=== PATIENT | male | born 1950 | race African-American/Black ===

== ENCOUNTER → 2019-08-09 | Day surgery (SDC) | payer OTHER ==
--- NOTE | 2019-08-07 14:42 | EKG ---
Test Date: 2019-08-07 Test Time: 14:22:37 Traffic Control Flagger: JESSICA MEASUREMENT RESULTS: Intervals: Rate: 60 VT: 202 QRSD: 90 QT: 410 QTc: 410 [place]: P: 50 VT: 202 QRS: 2 T: 26 INTERPRETIVE STATEMENTS: Normal sinus rhythm Normal ECG Compared to ECG 05/14/2013 12:08:41 No significant changes Electronically Signed On 08-07-19 14:41:51 REFRIGERATOR GLAZIER by Marek Allred
[2019-08-07 14:48] LABS: Absolute Lymphocytes (CBC) 1.2 K/uL (0.7-4.9); Basophils % 0.3 % (0-1.3); Hematocrit 39.8 % (39.6-49.0); Lymphocytes % 27.2 % (15.3-44.8); MPV 8.6 fL (7.6-11.3); RBC Red Blood Cell Count 4.45 M/uL (4.33-5.43)
[2019-08-07 15:07] LABS: ALT/SGPT 31 U/L (12-78); AST/SGOT 18 U/L (15-37); Albumin 4.2 g/dL (3.4-5.0); Alkaline Phosphatase 81 U/L (45-117); BUN Blood Urea Nitrogen 17 mg/dL (7-18); Bicarbonate 31 mmol/L (21-32); Bilirubin Total 0.8 mg/dL (0.2-1.0); Glucose Level 138 mg/dL (74-106); Potassium 4.2 mmol/L (3.5-5.1); Protein, Total 7.4 g/dL (6.4-8.2); Sodium Level 139 mmol/L (136-145)
[~2019-08-09] MED LIST: CEFAZOLIN/SWI 1gm 1 GM/10 ML SYR ONE; EPHEDRINE SULF 50 MG/ML VIAL ONE; FENTANYL CITR 100 MCG/2 ML ONE; FENTANYL CITR 250 MCG/5 ML ONE; LIDOCAINE 2% MPF 5 ML VIAL ONE; MIDAZOLAM HCL 2 MG/2 ML INJ ONE; NA CHLORIDE 0.9% 1,000 ML ONE; ONDANSETRON 4 MG/2 ML VIAL ONE; propofoL 200 MG/20 ML VIAL IV ONE
[2019-08-09] MEDS: FENTANYL CITR 100 MCG/2 ML ONE ×4 (13:25→13:55)
[2019-08-09] MEDS: MEPERIDINE HCL 25 MG/0.5 ML ONE ×2 (14:05→14:10)
--- NOTE | 2019-08-09 15:20 | OP ---
Date of Procedure: 08/09/2019 Surgeon: Cleve Horan MD Preoperative Diagnoses: Left carpal tunnel syndrome with left fifth trigger digit. Postoperative Diagnosis: Left carpal tunnel syndrome with left fifth trigger digit. Procedures: 1.Left open carpal tunnel release. 2.Left fifth trigger digit release. Estimated Blood Loss: 3 cc. Complications: There were no complications. Specimens: No pathology specimens sent. Indications For Operation: Mr. Lantigua is a 69-year-old male who I have seen in the past for trigger digit and he had an injection. Unfortunately, this was only temporarily helpful. He came back to s ee mo with significant amount of pain and stiffness in his left finger. Also, does have a history of carpal tunnel and is now complaining of numbness and tingling of his thumb, index and long finger. All risks, benefits, and alternatives to open carpal tunnel release with release of the fifth trigger digit have been discussed with the patient. He states he understands things as presented and wishes to proceed. Description Of Procedure: The patient was taken to the operating room and placed in supine position. General anesthesia was obtained by staff. Following this, a well-padded tourniquet was placed on s uperior left arm. The left upper extremity was then prepped and draped in usual sterile fashion for procedure. Following this, the arm was then elevated, but not exsanguinated. Tourniquet was raised. Attention was first turned to the fifth trigger digit. An incision was made just distal to the dist al palmar crease and was taken down carefully through skin only. Great care was taken to not progres s deeper than that and blunt dissection was then used as well as retraction to reveal the flexor tend on sheath as well as the A1 david. The A1 david was identified. A small tremayne was made in the A1 p ulley, was then divided in a proximal to distal direction until had no constricting bands. It was th en divided distal to proximal direction until had no constricting bands. Following this, the tendon was brought through full range of motion, found to be without abnormal tender motion. Attention was then turned to the carpal tunnel. A standard carpal tunnel incision was then made which parallels th e thenar crease. Meticulous hemostasis being maintained using bipolar electrocautery. This was take n down through skin only. The palmar fascia was encountered. It was divided longitudinally and any obstructions over the transverse carpal ligament were then gently swept out of the way. This was fol lowed by incision of the transverse carpal ligament. This allowed for visualization of underlying ca rpal tunnel structures. The transverse carpal ligament was then divided in a proximal to distal dire ction until no constricting bands. Attention was then turned from a distal to proximal direction whe re it was divided until there was no constricting bands. It should be noted he had a fairly dense vo lar forearm fascia and this was released as well. Following this, the tourniquet was dropped and the trigger digit incision was then closed using nylon. This was followed by inspection of the carpal t unnel. The median nerve was found to be fairly purple in color and definitely signs of compression. However, it has been completely released and there were no constricting bands as well as the median nerve being incontinuity. The skin was then closed using interrupted 4-0 nylon sutures. Patient the n placed in very well-padded sterile dressing, awakened, and taken to recovery room in good condition . /ROBER Voice ID: [id number] Report ID: [id number]
[2019-08-09 16:07] VITALS: BP 96/67; TEMP 97.2; O2SAT 94
== END ==
LOC: OR 13:30
PROVIDERS: ATTEND Orthopaedic Surgery
PROC: 0LN80ZZ Release Left Hand Tendon, Open Approach (ICD-10-PCS; principal; 2019-08-09 12:30)
PROC: 01N50ZZ Release Median Nerve, Open Approach (ICD-10-PCS; 2019-08-09 12:30)
DX: G56.02 Carpal tunnel syndrome, left upper limb (principal); M65.352 Trigger finger, left little finger
CPT/HCPCS: 93005; 85025; 36415; 82947; 80053; 26055; 64721; J2704; J2250; J3010 ×3; J2175; J0690; J7030; J2405 ×2

== ENCOUNTER 2019-12-18 09:04 | Day surgery (SDC) | payer OTHER ==
--- NOTE | 2019-12-13 08:59 | RAD REPORT ---
EXAM DESCRIPTION: Angely Comer (2 Views)12/13/2019 8:26 am CLINICAL HISTORY: Preop for carpal tunnel surgery COMPARISON: None FINDINGS: The interstitial pattern is mildly prominent within the medial right lung base Main lungs appear clear. The heart is normal size IMPRESSION: Interstitial pattern is mildly prominent in the medial right lung base. This may represe nt scarring or bronchiectasis. Mild pneumonitis is another consideration.
[2019-12-13 09:21] LABS: Absolute Lymphocytes (CBC) 0.9 K/uL (0.7-4.9); Basophils % 0.4 % (0-1.3); Hematocrit 40.4 % (39.6-49.0); Lymphocytes % 25.2 % (15.3-44.8); MPV 8.5 fL (7.6-11.3); RBC Red Blood Cell Count 4.49 M/uL (4.33-5.43)
[2019-12-13 09:36] LABS: Protime INR 0.91
[2019-12-13 09:39] LABS: BUN Blood Urea Nitrogen 20 mg/dL (7-18); Bicarbonate 31 mmol/L (21-32); Glucose Level 187 mg/dL (74-106); Sodium Level 141 mmol/L (136-145)
[2019-12-18] MEDS ORDERED: NA CHLORIDE 0.9% IV ONE ×2 (09:15)
[2019-12-18] MEDS ORDERED: LIDOCAINE 2% IV ONE ×2 (09:15)
[2019-12-18] MEDS ORDERED: CEFAZOLIN/SWI 2gm 2 GM/20 ML SYR ONE (09:24)
[2019-12-18] MEDS ORDERED: NA CHLORIDE 0.9% 1,000 ML ONE (09:24)
[2019-12-18] MEDS ORDERED: BUPIVACAINE 0.25% PF 30 ML VIAL ONE (09:32)
[2019-12-18] MEDS ORDERED: MIDAZOLAM HCL 2 MG/2 ML INJ ONE (09:32)
[2019-12-18] MEDS ORDERED: FENTANYL CITR 100 MCG/2 ML ONE (09:32)
[2019-12-18] MEDS ORDERED: propofoL 200 MG/20 ML VIAL IV ONE ×2 (09:32→10:07)
[2019-12-18] MEDS ORDERED: LIDOCAINE 2% MPF 5 ML VIAL ONE (09:32)
--- OUTSIDE RECORDS SUMMARY | 2019-12-18 10:21 | XMS REPORT | Clinical Summary ---
:1950 Author Organization [facility] Address [address] [place] [address] Care Team Providers Name Role Phone MD Lupe Primary Care Provider Allergies Active Allergy Reactions Severity Noted Date Comments Morphine Itching 01/15/2016 Medications Medication Sig Dispensed Refills Start End Date Status Date zolpidem CR (AMBIEN Take 12.5 mg 0 Active CR) 12.5 MG CR by mouth tablet nightly as needed for sleep. esomeprazole Take 40 mg by 0 Act tian (NexIUM) 40 MG mouth daily capsule before breakfast. Take the morning of surgery sitaGLIPtin Take by mouth 0 Acti ve (JANUVIA) 100 MG daily. tablet atorvastatin 0 Active (LIPITOR) 10 MG 8 tablet valsartan-hydrochlor Take 1 tablet 0 Active othiazide by mouth (DIOVAN-HCT) daily. 160-12.5 mg per tablet olmesartan (BENICAR) Take 20 mg by 0 03/18 Discontinued 20 MG tablet mouth daily. 19 (Pat ient Reported) cyclobenzaprine Take 0.5 90 tablet 0 03/18/20 Disc ontinued (FLEXERIL) 10 mg tablets (5 mg 8 19 (Patient tablet total) by Reported) mouth 3 (three) times a day as needed for muscle spasms for up to 90 doses. acetaminophen Take 2 84 tablet 0 04/01/20 d (TYLENOL EXTRA tablets 9 19 STRENGTH) 500 MG (1,000 mg tablet total) by mouth every 8 (eight) hours for 14 days. naproxen (NAPROSYN) Take 1 tablet 28 tablet 0 08/26/201 09/09/ 20 500 MG tablet (500 mg 9 19 total) by mouth 2 (two) times a day with meals for 14 days. traMADol (ULTRAM) 50 Take 1 tablet 12 tablet 0 04/04 mg (50 mg total) 9 19 tabletIndications: by mouth acute pain every 6 (six) hours as needed for moderate pain for up to 12 doses .Acute Pain. docusate sodium Take 1 28 capsule 0 04/01/20 Exp ired (COLACE) 100 MG capsule (100 9 19 capsule mg total) by mouth 2 (two) times a day for 14 days. Active Problems Problem Noted Date Unilateral inguinal hernia 03/18/2019 Lumbar radiculopathy 11/01/2017 Cervical stenosis of spinal canal 03/04/2016 Encounters Date Type Specialty Care Team Description 04/03/2019 Office Visit General Surgery Brian Garcia Postopera tive follow-up MD Sue (Primary Dx) 03/18/2019 Anesthesia Event General Surgery Ziyad Crow MD Felan, Veronica Lynn, DANIEL 03/18/2019 Surgery General Surgery Brian Garcia OPEN LEFT INDIRECT EMD JONEL Gonzlaes HE RNIA REPAIR WITH ME SH 03/18/2019 Hospital Encounter General Surgery Brian Garcia Lef t inguinal hernia MD Sue 03/12/2019 Pre-Admit Testing Pre-Admission Brian Garcia Preop examination Appointment Testing MD Sue (Primary Dx) 02/22/2019 Hospital Encounter Radiology Vanessa Brown Cervical radiculopathy MD Brock 02/22/2019 Hospital Encounter Radiology Vanessa Brown Cervical radiculopathy MD Brock 02/20/2019 Hospital Encounter Radiology Brian Garcia MD 02/20/2019 Office Visit General Surgery Brian Garcia Left ingu inal hernia (Primary Dx); MD Sue Dyslipidemia; Gastroesophagea l reflux disease, esophagitis presence not specified; Essential hyper tension; History of diab etes mellitus 02/19/2019 Transcribe Orders Access Vanessa Brown Cervical r adiculopathy MD Brock (Primary Dx) 02/13/2019 Orders Only General Surgery Mesfin Andrade MD after 12/17/2018 Immunizations Name Administration Dates Next Due Influenza, Unspecified 06/27/2017 Family History Medical History Relation Name Comments Diabetes Brother antolin Diabetes Father Hypertension Father Cancer Mother Hypertension Sister marlin No Known Problems Sister harry Relation Name Status Comments Brother antolin Alive Father Mother breast cancer Sister marlin Alive Sister harry Alive Social History Tobacco Use Types Packs/Day Years Used Date Never Smoker Smokeless Tobacco: Never Used Alcohol Use Drinks/Week oz/Week Comments Yes 14 Glasses of wine 14.0 1.5 glasses r ed wine daily Alcohol Habits Answer Date Recorded How often do you have a drink containing 4 or more times a w [place] 03/18/2019 alcohol? How many drinks containing alcohol do you have 1 or 2 03/18/2019 on a typical day when you are drinking? How often do you have six or more drinks on one Not asked occasion? Sex Assigned at Date Recorded Not on file Job Start Date Occupation Industry Not on file Not on file Not on file Travel History Travel Start Travel End No recent travel history available. Last Filed Vital Signs Vital Sign Reading Time Taken Comments Blood Pressure 127/71 04/03/2019 1:51 PM CDT Pulse 58 04/03/2019 1:51 PM CDT Temperature 36.7 C (98.1 F) 04/03/2019 1:51 PM CDT Respiratory Rate 16 04/03/2019 1:51 PM CDT Oxygen Saturation 100% 04/03/2019 1:51 PM CDT Inhaled Oxygen Concentration - - Weight 86.2 kg (190 lb) 04/03/2019 1:51 PM CDT Height 185.4 cm (6' 1") 04/03/2019 1:51 PM CDT Body Mass Index 25.07 04/03/2019 1:51 PM CDT Plan of Treatment Health Maintenance Due Date Last Done Comments COLONOSCOPY SCREENING 2001 SHINGLES VACCINES (#1) 2001 65+ PNEUMOCOCCAL VACCINE (1 of 2 - PCV13) 2016 INFLUENZA VACCINE 02/22/2020 06/27/2017 Implants Implanted Type Area Framing Mill Operator Device Shelf Model / Identifier Expiration Serial / Lot Date Bone Matriz Osteocel Pro Small - [id number] - [id number] Human N /A: NUVASIVE 12/20/2022 [id number] / Implanted: Qty: 1 on 06/08/2018 by Vanessa Brown MD at [facility] Tissue N/A [id number] / Implants LOT NA Bone Matriz Osteocel Pro Small - [id number] - [id number] Human N /A: NUVASIVE 12/28/2022 [id number] / Implanted: Qty: 1 on 06/08/2018 by Vanessa Brown MD at [facility] Tissue N/A [id number] / Implants LOT NA Bone Matriz Osteocel Pro Small - [id number] - [id number] Human N /A: NUVASIVE 12/20/2022 [id number] / Implanted: Qty: 1 on 06/08/2018 by Vanessa Brown MD at [facility] Tissue N/A [id number] / Implants LOT NA Distraction Pin/Screw - [id number] IMPLANT N/A: NUVASIVE DUKE E [id number] / Implanted: 06/08/2018 at [facility] (Quantity not on file) DEVICES N/A / Spacer Spinal Cntord Sm [id number] - [id number] Spinal N/A: NUVA HECTORE [id number] / Implanted: Qty: 1 on 06/08/2018 by Vanessa Brown M D at [facility] Implants N/A / Plate Spinal Revltn 3lvl 60mm [place] - [id number] Spinal N/A: N UVASIVE [id number] / Implanted: Qty: 1 on 06/08/2018 by Vanessa Brown M D at [facility] Implants N/A / Screw Spinal Fxd Slf-Tap 4x15mm [place] Revolution Acp - [id number] Spinal N/A: NUVASIVE [id number] / Implanted: Qty: 2 on 06/08/2018 by Vanessa Brown M D at [facility] Implants N/A / Screw Spinal Nancy Slf-Tap 4x15mm [place] Revolution Acp - [id number] Spinal N/A: NUVASIVE [id number] / Implanted: Qty: 6 on 06/08/2018 by Vanessa Brown M D at [facility] Implants N/A / Spacer Spinal Cntord Med 5mm - [id number] Spinal N/A: NUVASIVE [id number] / Implanted: Qty: 2 on 06/08/2018 by Vanessa Brown M D at [facility] Implants N/A / Matrix Hmstc Floseal 10ml W/ Humn F2 - [id number] Surgical N/A: PINTO 06/22/2017 [id number] / Implanted: 03/04/2016 at [facility] (Quantity not on file) Imp lants; N/A BIOSCIENCE / Expanders; [id number] Extenders; Surgical Wires Matrix Hmstc Floseal 5ml W/ Humn F2 - [id number] Surgical N/A: BAX TER 03/23/2017 [id number] / Implanted: 03/04/2016 at [facility] (Quantity not on file) Imp lants; N/A BIOSCIENCE / Expanders; [id number] Extenders; Surgical Wires Matrix Hmstc Floseal 5ml W/ Humn F2 - [id number] Surgical N/A: BAX TER 03/23/2017 [id number] / Implanted: 03/04/2016 at [facility] (Quantity not on file) Imp lants; N/A BIOSCIENCE / Expanders; [id number] Extenders; Surgical Wires Matrix Hmstc Floseal 5ml W/ Humn F2 - [id number] Surgical N/A: BAX TER 03/23/2017 [id number] / Implanted: 03/04/2016 at [facility] (Quantity not on file) Imp lants; N/A BIOSCIENCE / Expanders; [id number] Extenders; Surgical Wires Mesh Hrnia Rpr 2x12in Flat Shet Ppe Soft-Tissue Ventrl - [id number] Surgical N/A: [employer] 09/20/2022 [id number] / Implanted: Qty: 1 on 03/18/2019 by Brian Garcia MD at [facility] Mesh or N/A / Tissue [id number] [employer] Procedures Procedure Name Priority Date/Time Associated Comments Diagnosis SURGICAL PATHOLOGY Routine 03/18/2019 3:17 Resul ts for this REQUEST PM CDT procedure are i n the results section. POC GLUCOSE Routine 03/18/2019 3:00 Results for this PM CDT procedure are i n the results section. NE AN ELECTIVE Routine 03/18/2019 1:01 Results f or this ENDOTRACHEAL AIRWAY PM CDT procedur e are in the results section. REPAIR, HERNIA, 03/18/2019 12:40 Left inguinal INGUINAL PM CDT hernia Case Notes MESH Special Needs MESH POC GLUCOSE Routine 03/18/2019 10:55 AM Results for this CDT procedure are i n the results section. ECG PRE/POST OP Routine 03/12/2019 2:24 PM Preop examination Results for this CDT procedure are i n the results section. ESTIMATED GFR Routine 03/12/2019 2:15 PM Results for this CDT procedure are i n the results section. BASIC METABOLIC Routine 03/12/2019 2:15 PM Preop examination Results for this PANEL CDT procedure are i n the results section. CBC HEMOGRAM Routine 03/12/2019 2:15 PM Preop examination Res ults for this CDT procedure are i n the results section. HEMOGLOBIN A1C Routine 03/12/2019 2:15 PM Preop examination R esults for this CDT procedure are i n the results section. XR CERVICAL SPINE Routine 02/22/2019 1:51 PM Cervical radicul opathy Results for this COMPLETE W FLEX EXT CDT procedur e are in the results section. MRI CERVICAL SPINE Routine 02/22/2019 1:48 PM Cervical radicu lopathy Results for this WO CONTRAST CDT procedure are i n the results section. CT ABD/PELVIC Routine 12/20/2018 2:34 PM Results for this EXTERNAL STUDY CDT procedure are in the results section. CT ABDOMEN PELVIS W Routine 12/20/2018 CONTRAST after 12/17/2018 Results Surgical pathology request (03/18/2019 3:17 PM CDT) [facility] DEPARTMENT OF PATHOLOGY AND GENOMIC MEDICINE Surgical pathology See link below [facility] DEPARTMENT OF report for PDF Lab PATHOLOGY AND Report GENOMIC MEDICINE Result status This is Final [facility] DEPARTMENT OF Report for PATHOLOGY AND [id number] GENOMIC MEDICINE Specimen Performing Organization Address City/[facility] Phone Number [facility] DEPARTMENT OF PATHOLOGY AND [address] [place] [phone] GENOMIC MEDICINE POC glucose (03/18/2019 3:00 PM CDT)Only the most recent of2 resultswithin the time period is included. Pathologist Sig nature POC glucose 125 (H) 65 - 99 mg/dL [facility] Comment: HOSPITAL No Action Needed Meter ID: [id number] Foundation Drill Operator Helper: Pavan Hodge Specimen Performing Organization Address City/[facility]/Zipcode Phone Number [facility] DEPARTMENT OF PATHOLOGY AND [address] [place] [phone] GENOMIC MEDIC[address] [address] Airway (03/18/2019 1:01 PM CDT) Narrative Performed At Rupal Dickson CRNA 03/18/2019 1:02 PM Airway Performed by: Rupal Dickson CRNA Authorized by: Ziyad Crow MD Location: OR Urgency: Elective Difficult Airway: No Anesthesiologist: Ziyad Crow MD Performed by: anesthesiologist Preoxygenated with 100% O2: Yes C-spine Precautions Maintained Throughou t: Yes Mask Ventilation: Easy mask Final Airway Type: Endotracheal airway Final Endotracheal Airway: ETT Cuffed: Yes Technique Used: Video laryngoscopy Devices/Methods Used in Placement: Int ubating stylet Insertion Site: Oral Blade type: glide 4. Laryngoscope Blade/Videolaryngoscope Rogerio de Size: 4 ETT Size (mm): 8.0 Cuff at minimum occlusion pressure: Yes Measured from: Lips ETT to Lips (cm): 23 Placement Verified by: CO2 detection, di rect visualization and equal breath sounds Laryngoscopic view: Grade I - full vie w of glottis Rapid Sequence Induction (RSI): No Modified RSI: No Number of Attempts at Approach: 1 Pt was preoxygenated x3 min. Eyes taped after LOC. DL x1 by MD Jamie with Glide4 with grade 1 view. 8.0 ETT d irectly visualized pass through whitney glottis atraumatically & cuffed to seal. Placement confirmed with bilateral breath sounds & ETCO2. Lips, t eeth, gums unchanged. ECG Pre/Post Op (03/12/2019 2:24 PM CDT) Pathologist Sig nature Ventricular rate 60 [facility] Atrial rate 60 [facility] NE interval 198 [facility] QRSD interval 88 [facility] QT interval 396 [facility] QTC interval 396 [facility] P axis 1 73 [facility] QRS axis 1 59 [facility] T wave axis 60 [facility] EKG impression Normal sinus [facility] MUSE rhythm-Normal ECG-In automated comparison with ECG of 01-JUN-2018 11:33,-No significant change was found- Specimen Narrative Performed At This result has an attachment that is no t available. Performing Organization Address City/State/Zipcode Phone Number [facility] MUSE [address] [place] [address] Estimated GFR (03/12/2019 2:15 PM CDT) Estimated GFR >=90 mL/min/1.73 [facility] Comment: m2 HOSPITAL Catergory Units Interpretation G1 >=90 Normal or high G2 60-89 Mildly decreased G3a 45-59 Mildly to moderately decreas ed G3b 30-44 Moderately to severely decre ased G4 15-29 Severely decreased G5 <15 Kidney failure The eGFR was calculated using the Chronic Kidney Disea se Epidemiology Collaboration (CKD-EPI) equation. Interpretation is based on recommendations of the National Kidney Foundation-Kidney Disease Outcomes John lity Initiative (NKF-KDOQI) published in 2014. Specimen Plasma specimen Performing Organization Address City/State/Zipcode Phone Number [facility] DEPARTMENT OF PATHOLOGY AND [address] [place] [address] [phone] [address] CBC hemogram (03/12/2019 2:15 PM CDT) Pathologist Sig nature WBC 4.29 (L) 4.50 - 11.00 k/uL [facility] RBC 4.32 (L) 4.40 - 6.00 m/uL [facility] HGB 13.5 (L) 14.0 - 18.0 g/dL [facility] HCT 39.7 (L) 41.0 - 51.0 % [facility] MCV 91.9 82.0 - 100.[address] [facility] MCH 31.3 27.0 - 34.[address] [facility] MCHC 34.0 31.0 - 37.0 g/dL [facility] RDW - SD 42.4 37.0 - 55.[address] [facility] MPV 10.4 8.8 - 13.[address] [facility] Platelet count 137 (L) 150 - 400 k/uL [facility] Nucleated RBC 0.00 /[address] [facility] Specimen Blood Performing Organization Address City/State/Zipcode Phone Number [facility] DEPARTMENT OF PATHOLOGY AND [address] [place] [address] [phone] [address] Hemoglobin A1c (03/12/2019 2:15 PM CDT) Hemoglobin A1C 6.4 (H) 4.0 - 5.6 % [facility] Comment: HOSPITAL HbA1c cutoffs for diagnosing diabetes: 4.0% - 5.6% = normal 5.7% - 6.4% = increased risk for diabetes (prediabetes ) >=6.5% = diabetes Goals for glycemic control (ADA 2016) < 7.0% Target for non adults with diabetes. More or less stringent targets may be appropriate for individual patients. <7.5% Target for Children and adolescents with type 1 diabetes. Specimen Blood Performing Organization Address City/[facility] Phone Number [facility] DEPARTMENT OF PATHOLOGY AND [address] [place] [address] [address] Basic metabolic panel (03/12/2019 2:15 PM CDT) Pathologist Sig nature Sodium 141 135 - 148 mEq/L [facility] L Potassium 4.5 3.5 - 5.0 mEq/L [facility] Chloride 102 98 - 112 mEq/L [facility] CO2 28 24 - 31 mEq/L [facility] Anion gap 11@ANIO 7 - 15 mEq/L [facility] BUN 22 8 - 23 mg/dL [facility] Creatinine 0.87 0.70 - 1.20 mg/dL [facility] RJ Glucose 107 (H) 65 - 99 mg/dL [facility] Calcium 10.2 8.8 - 10.2 mg/dL [facility] Specimen Plasma specimen Performing Organization Address City/[facility] Phone Number [facility] DEPARTMENT OF PATHOLOGY AND [address], [place] [phone] [address] XR Cervical Spine Complete w flex/ext (02/22/2019 1:51 PM CDT) Specimen Narrative Performed At EXAMINATION: XR CERVICAL SPINE COMPLET E W FLEX EXT [facility] COMPARISON: September 17, 2018. CLINICAL HISTORY: M54.12 Radiculopathy cervical region, M54.12 COMMENTS: Frontal lateral and 2 oblique views of the cervical spine are provided. Lateral flexion-extension views are provided. FINDINGS: Anterior metallic plate and screws are see n from C3 to C6. The disc spacers are again noted. The oblique view coreen w mild encroachment upon the foramina greater on the right si de. There is mild anterior spondylosis in the adjacent spi ne. Between flexion and extension there is n o significant abnormal motion. IMPRESSION: Postoperative and degenera tive change. [id number] Procedure Note Hm Interface, Radiology Results Incoming - 02/22/2019 2:22 PM CDT EXAMINATION: XR CERVICAL SPINE COMPLETE W FLEX EXT COMPARISON: September 17, 2018. CLINICAL HISTORY: M54.12 Radiculopathy cervical region, M54.12 COMMENTS: Frontal lateral and 2 oblique views of the cervical spine are provided. Lateral flexion-extension views are provided. FINDINGS: Anterior metallic plate and s crews are seen from C3 to C6. The disc spacers are again noted. The oblique view show mild encroachment upon the foramina greater on the right side. There is mild anterior spondylosis in the adjacent spine. Between flexion and extension there is n o significant abnormal motion. IMPRESSION: Postoperative and degenerat tian change. [id number] Performing Organization Address City/State/Zipcode Phone Number [facility] [address] [place] [address] MRI Cervical Spine Wo Contrast (02/22/2019 1:48 PM CDT) Specimen Narrative Performed At This result has an attachment that is no t available. EXAMINATION: MRI CERVICAL SPINE WO CONTRAST [facility] CLINICAL HISTORY: M54.12 Radiculopathy cervical des on, M54.12 COMPARISON: Cervical MRI dated May 09, 2018 TECHNIQUE: Multiplanar multisequence non contrast enhanced examination was performed of the cervical spine. FINDINGS: Interval anterior fusion is noted from C3 through C6 with anterior plate and screws. There are some straightening of the cervical lordosis. There is no spondylolisthesis. No acute osseous edema identif ied. The right spinal cord is intact. There is no soft tissue mass or adenopathy. There is no spondylolisthesis. Preverteb ral soft tissues are within normal limits. Axial images through the disc spaces demonstrate the f ollowing: C1-C2: There is narrowing of the atlanto axial interval with spurring. There is no significant stenosis. C2-C3: Uncovertebral arthrosis and facet disease results in mild left foraminal narrowing. C3-C4: There is posterior spondylosis wi th mild to moderate canal narrowing to 7.4 mm. Uncovertebral arthrosis and facet disease results in moderate right and mild to moderate left foraminal narrowing. Findings appear improved. C4-C5: The second anterior fusion change s are noted with zhjb-yd-hhczfusy canal to 7.4 mm. Uncovertebral arthrosis and facet disease results in moderate severe right and moderate left foraminal narrowing. Canal narrowing is significantly improved. Foraminal stenosis is grossly stable given differences in technique. C5-C6: The second anterior fusion change s are noted with mild to moderate canal narrowing to 7.4 mm which is improved. Uncovertebral arthrosis and facet disease results in stable moderate right and bfsz-kv-lnmwrkgf left foraminal narrowing. C6-C7: There is posterior spondylosis wi th mild canal narrowing to 8.4 mm. Uncovertebral arthrosis and facet disease results in moderate bilateral foraminal narrowing. The foraminal stenosis is grossly stable. Correlate for C7 radiculopathies to determine significance. C7-T1: There is posterior spondylosis an d disc bulge of mild to moderate canal narrowing to 7.4 mm. Disc osteophyte complex and facet spurring results in at least moderate bilateral foraminal narrowing. Correlate for C8 radiculopathies to determine significance. Findings are grossly stable. No significant posterior disc disease, s wilfred canal or neural foraminal stenosis at other visualized levels. IMPRESSION: There is significant improvement in the multilevel canal stenosis status post anterior fusion. There is persistent multilevel foraminal narrowing. The overall foraminal stenosis is grossly stable given differences in technique. However, recommend correlation for individual cervical radi culopathies to determine clinical significance of the residual bilateral foraminal narrowing as above. [id number] Procedure Note Hm Interface, Radiology Results Incoming - 02/22/2019 2:19 PM CDT EXAMINATION: MRI CERVICAL SPINE WO CONTRAST CLINICAL HISTORY: M54.12 Radiculopathy cervical region, M54.12 COMPARISON: Cervical MRI dated May 09, 2018 TECHNIQUE: Multiplanar multisequence non contrast enhanced examination was performed of the cervical spine. FINDINGS: Interval anterior fusion is noted from C3 through C6 with anterior plate and screws. There are some straightening of the cervical lordosis. There is no spondylolisthesis. No acute osseous edema identified. The right spinal cord is intact. There is no soft tissue mass or adenopathy. There is no spondylolisthesis. Preverteb ral soft tissues are within normal limits. Axial images through the disc spaces dem onstrate the following: C1-C2: There is narrowing of the atlanto axial interval with spurring. There is no significant stenosis. C2-C3: Uncovertebral arthrosis and facet disease results in mild left foraminal narrowing. C3-C4: There is posterior spondylosis wi th mild to moderate canal narrowing to 7.4 mm. Uncovertebral arthrosis and facet disease results in moderate right and mild to moderate left foraminal narrowing. Findings appear improved. C4-C5: The second anterior fusion change s are noted with cbqr-ai-hpijpdss canal to 7.4 mm. Uncovertebral arthrosis and facet disease results in moderate severe right and moderate left foraminal narrowing. Canal narrowing is significantly improved. Foraminal stenosis is grossly stable giv en differences in technique. C5-C6: The second anterior fusion change s are noted with mild to moderate canal narrowing to 7.4 mm which is improved. Uncovertebral arthrosis and facet disease results in stable moderate right and orqa-fx-offocmki left foraminal narrowing. C6-C7: There is posterior spondylosis wi th mild canal narrowing to 8.4 mm. Uncovertebral arthrosis and facet disease results in moderate bilateral foraminal narrowing. The foraminal stenosis is grossly stable. Correlate for C7 radiculopathies to determine significance. C7-T1: There is posterior spondylosis an d disc bulge of mild to moderate canal narrowing to 7.4 mm. Disc osteophyte complex and facet spurring results in at least moderate bilateral foraminal narrowing. Correlate for C8 radiculopathies to determine significance. Findings are grossly stabl e. No significant posterior disc disease, s wilfred canal or neural foraminal stenosis at other visualized levels. IMPRESSION: There is significant improvement in the multilevel canal stenosis status post anterior fusion. There is persistent multilevel foraminal narrowing. The overall foraminal stenosis is grossly stable given differences in technique. However, recommend correlation for individual cervical radi culopathies to determine clinical significance of the residual bilateral foraminal narrowing as above. [id number] Performing Organization Address City/State/Zipcode Phone Number [facility] [address] [place] [address] CT Abd/Pelvic External Study (12/20/2018 2:34 PM CDT) Specimen Narrative Performed At This exam was not acquired at a Method[facility] t facility and has not been [facility] interpreted by a Buddhist Provider. T he exam was imported into our imaging system for comparisons purposes. Performing Organization Address City/State/Zipcode Phone Number [facility] [address] [place] [address] CT Abdomen Pelvis W Contrast (12/20/2018) Narrative Performed At This result has an attachment that is no t available. after 12/17/2018 Advance Directives For more information, please contact: [phone] Type Date Recorded Patient Hotel Service Manager Explanati on Advance Directives, Living Will and Medical Power of Back [place] Advance Directives, 06/08/2018 4:40 PM Living Will and Medical Power of Back [place] Advance Directives, 03/22/2019 3:34 PM POA Living Will and Medical Power of Back [place]
--- NOTE | 2019-12-18 10:45 | P.BOP ---
Preoperative diagnosis: right carpal tunnel syndrome Postoperative diagnosis: same Primary procedure: right carpal tunnel release Nuclear Physics Professor: NONE,NONE Estimated blood loss: <5 cc Specimen: none Findings: see dictation Anesthesia: General Complications: None Implants: none Fluids & blood products: per anesthesia record; TT: 36 mins @ 300 mmHg Transferred to: Recovery Room Condition: Good
[2019-12-18] MEDS ORDERED: ONDANSETRON 4 MG/2 ML VIAL ONE (11:11)
[2019-12-18] MEDS: CODEINE 30MG/APAP 300MG TAB ONE ×2 (11:45→11:50)
[2019-12-18 11:59] VITALS: BP 116/67; TEMP 96.8; O2SAT 98
--- NOTE | 2019-12-19 00:20 | OP ---
Date of Procedure: 12/18/2019 Surgeon: Haja Messer MD Preoperative Diagnosis: Right carpal tunnel syndrome. Postoperative Diagnosis: Right carpal tunnel syndrome. Procedure Performed: Right carpal tunnel release. Anesthesia: Mynor block. Complications: None. Implants: None. Blood Loss: Less than 5 mL. Fluids: Per Anesthesia record. Tourniquet Time: 36 minutes and 300 mmHg. Indication For Procedure: Rk is a 69-year-old male who presented to my clinic with signs, symptoms, and EMG findings consistent with right carpal tunnel syndrome. He failed conservative treatment measures and his symptoms are interfering with his activities of daily living. We discussed with the patient at length risks and benefits associated with operative and nonoperative treatment. He expressed understanding and elected to proceed with operative treatment. Description Of Procedure: After informed consent was obtained, the patient was identified in the preoperative holding area and the right upper extremity was marked. Patient was then brought back to the operating room, transferred to the operating table in supine fashion and placed under local MAC. Mynor block anesthesia to his right upper extremity was performed by Anesthesia. The right upper extremity was then prepped and draped in usual sterile fashion. A time- out was initiated. The correct patient and procedure were confirmed and identified. Patient did receive a preoperative prophylactic antibiotics. Approximately, a 3 cm longitudinal incision was made just ulnar to the thenar palm crease. Dissection was taken down to the palmar fascia. A [place] elevator was placed just deep to the palmar fascia and 15 blade was then used to release the palmar fascia and transverse carpal ligaments. The [place] elevator below the transverse carpal ligament to protect the median nerve. Once the transcarpal ligament was released onto the incision using tips of Metzenbaum were placed just deep to the transverse carpal ligament and the tips were aimed superficially. Any fascial bands that were remaining were released. Under direct visualization, the transcarpal ligament was completely released and there were no remaining fascial bands. The wound was then irrigated thoroughly with normal saline and the skin was approximated using a 5-0 Prolene. Sterile dressings were well applied. Patient was awakened and transferred to the PACU in stable condition. Postoperative Plan: He will follow up in clinic in 1 week for suture removal and he will begin working on range of motion exercises for his right hand. RONNA/ROBER Voice ID: [id number] Report ID: [id number] MTDD
== END 2019-12-18 12:45 | disposition home or self-care (01) ==
LOC: OR 09:04
PROVIDERS: ATTEND Orthopaedic Surgery Sports Medicine
PROC: 01N50ZZ Release Median Nerve, Open Approach (ICD-10-PCS; principal; 2019-12-18 10:30)
DX: G56.01 Carpal tunnel syndrome, right upper limb (principal); E11.9 Type 2 diabetes mellitus without complications; K21.9 Gastro-esophageal reflux disease without esophagitis; Z88.6 Allergy status to analgesic agent; Z11.59 Encounter for screening for other viral diseases
CPT/HCPCS: 64721; 85025; 80048; 85610; 36415; 82947 ×2; 85730; 83036; 71046; J2704 ×2; J2250; J3010; J0690; J7030; J2405

== ENCOUNTER 2021-04-16 06:37 | Day surgery (SDC) | payer OTHER ==
[2021-04-14 09:51] LABS: Absolute Lymphocytes (CBC) 0.9 K/uL (0.7-4.9); Basophils % 0.6 % (0-1.3); Hematocrit 41.4 % (39.6-49.0); Lymphocytes % 29.4 % (15.3-44.8); RBC Red Blood Cell Count 4.51 M/uL (4.33-5.43)
[2021-04-14 09:56] LABS: Protime INR 0.9
[2021-04-14 10:08] LABS: BUN Blood Urea Nitrogen 19 mg/dL (7-18); Bicarbonate 31 mmol/L (21-32); Glucose Level 162 mg/dL (74-106); Potassium 4.5 mmol/L (3.5-5.1); Sodium Level 143 mmol/L (136-145)
--- NOTE | 2021-04-14 10:22 | RAD REPORT ---
EXAM DESCRIPTION: RAD - Chest Pa And Lat (2 Views) - 04/14/2021 9:40 am CLINICAL HISTORY: Pre Op Chest pain. COMPARISON: Chest Pa And Lat (2 Views) dated 12/13/2019 FINDINGS: The lungs are clear. The heart is normal in size. No displaced fractures. IMPRESSION: No acute or concerning finding suspected.
[2021-04-16] MEDS ORDERED: CEFAZOLIN/SWI 2gm 0 GM/0 ML SYR ONE (07:03)
[2021-04-16] MEDS ORDERED: NA CHLORIDE 0.9% 1,000 ML ONE (07:03)
[2021-04-16] MEDS ORDERED: MIDAZOLAM HCL 2 MG/2 ML INJ ONE (07:34)
[2021-04-16] MEDS ORDERED: NS 0.9% VIAL 0 ML ONE (07:34)
[2021-04-16] MEDS ORDERED: FENTANYL CITR 100 MCG/2 ML ONE (07:34)
[2021-04-16] MEDS ORDERED: LIDOCAINE 2% MPF 5 ML VIAL ONE (07:34)
[2021-04-16] MEDS ORDERED: propofoL 200 MG/20 ML VIAL IV ONE (07:34)
[2021-04-16] MEDS ORDERED: LIDOCAINE 1% MPF 30 ML VIAL ONE (07:35)
[2021-04-16] MEDS ORDERED: CEFAZOLIN/SWI 1gm 1 GM/10 ML SYR ONE (07:44)
[2021-04-16] MEDS: BUPIVACAINE 0.25% PF 10 ML VIAL ONE ×2 (07:56→08:24)
--- NOTE | 2021-04-16 08:36 | P.BOP ---
Preoperative diagnosis: right hand middle and small finger trigger digits Postoperative diagnosis: same Primary procedure: right hand middle and small finger A1 david releases Manager Printing: NONE,NONE Estimated blood loss: 2 cc Specimen: none Findings: see dictation Anesthesia: General Complications: None Implants: none Fluids & blood products: per anesthesia record; TT: 30 mins @ 250 mmHg Transferred to: Recovery Room Condition: Good
[2021-04-16] MEDS ORDERED: ONDANSETRON 4 MG/2 ML VIAL ONE ×2 (08:44→09:17)
[2021-04-16] MEDS ORDERED: KETOROLAC 30 MG/ML INJ ONE (08:44)
[2021-04-16] MEDS: HYDROMORPHONE HCL 1 MG/ML INJ ONE ×2 (08:56→09:03)
[2021-04-16] MEDS ORDERED: PROMETHAZINE INJ 25 MG/ML AMP ONE ×2 (10:10→10:16)
[2021-04-16] MEDS ORDERED: CODEINE 30MG/APAP 300MG TAB ONE (10:30)
[2021-04-16 11:40] VITALS: BP 119/65; TEMP 97.4; O2SAT 98
--- NOTE | 2021-04-16 20:11 | OP ---
Date of Procedure: 04/16/2021 Surgeon: Haja Messer MD Preoperative Diagnosis: Right middle finger and right small finger trigger digits. Postoperative Diagnosis: Right middle finger and right small finger trigger digits. Procedure Performed: Right middle finger and small finger A1 david releases. Anesthesia: General LMA. Fluids: Per Anesthesia record. Estimated Blood Loss: 2 cc. Complications: None. Tourniquet Time: 30 minutes at 250 mmHg. Indication For Procedure: Rk is a 71-year-old male, who is in my clinic with signs and symptoms consist with right hand middle finger and small finger trigger digits. The patient failed conservati ve treatment measures including corticosteroid injections. He had continued pain and triggering that interferes with his activities of the daily living. I discussed with the patient at length risks an d benefits associated with operative and nonoperative treatment. He expressed understanding and elec murphy to proceed with operative treatment. Description Of Procedure: After informed consent was obtained, the patient was identified in the pre operative holding area. The right hand middle and small fingers were marked. The patient was then b rought back to the operating room, transferred to the operating table in supine fashion, placed under general LMA anesthesia. The right upper extremity was then prepped and draped in usual sterile fash ion. A time-out was initiated. Correct patient and procedure confirmed and identified. The patient did receive his preoperative prophylactic antibiotics. The right upper extremity was then exsanguin ated using an Esmarch and tourniquet was inflated to 250 mmHg. Attention was first turned to the mid dle finger. Approximately, a 2 cm longitudinal incision was made centered over the middle finger A1 david. Dissection was then taken down to flexor tendon sheath. Tissue was gently retracted using R cassandraell. 15 blade was then used to incise and release the A1 david proximally and distally. There w as significant amount of tenosynovial fluid that was expressed after release of the tendon sheath. S mall portion of the tendon sheath was excised to minimize risk of recurrence. Using a Ragnell, the f lexor tendon was then brought out through the incision. tendon without any triggering not ed. The wound was then irrigated thoroughly with normal saline and skin was approximated using 5-0 P rolene. Attention was taken to the small finger where approximately 1.5 cm longitudinal incision was made, centered over the small finger A1 david. Dissection was then taken down to the flexor tendon sheath using Ragnell. A 15 blade was then used to release the flexor tendon sheath. A segment of t he tendon sheath excised to minimize risk of recurrence. The flexor tendons were then brought out th rough the incision without any triggering noted. The wound was then irrigated thoroughly with normal saline. Skin was approximated using a 5-0 Prolene. Sterile dressings were applied. The patient wa s awakened and transferred to PACU in stable condition. Postoperative Plan: The patient will work on range of motion in 1 week for suture removal . CV/MODL Voice ID: [id number] Report ID: [id number]
== END 2021-04-16 10:39 | disposition home or self-care (01) ==
LOC: OR 06:37
PROVIDERS: ATTEND Orthopaedic Surgery Sports Medicine
PROC: 0LN70ZZ Release Right Hand Tendon, Open Approach (ICD-10-PCS; 2021-04-16)
PROC: 0LN70ZZ Release Right Hand Tendon, Open Approach (ICD-10-PCS; principal; 2021-04-16 07:30)
DX: M65.351 Trigger finger, right little finger (principal); M65.331 Trigger finger, right middle finger; M25.541 Pain in joints of right hand; Z20.822 Contact with and (suspected) exposure to COVID-19
CPT/HCPCS: 85025; 80048; 36415; 85610; 82947; 85730; 71046; 26055 ×2; U0003; J2704; J2550; J2250; J3010; J1170; J0690; J7030; J2405 ×2